=== PATIENT | male | born 1985 ===

== ENCOUNTER 2016-11-21 16:46 | Emergency (ER) | payer SELFPAY ==
[2016-11-21 16:54] VITALS: BP 117/77; PULSE 66; RESP 18; TEMP 98; O2SAT 98
--- NOTE | 2016-11-21 17:40 | ED PDOC ---
Lower Extremity Pain/Injury Time Seen by Provider: 11/21/16 17:13 Chief Complaint (Nursing): Lower Extremity Problem/Injury Chief Complaint (Provider): Lower Extremity Problem/Injury History Per: Patient History/Exam Limitations: no limitations Onset/Duration Of Symptoms: Hrs (prior to arrival ) Additional Complaint(s): Siva Owen, 31 year old male presents to the ED complaining of right toe pain after injuring it earlier today prior to arrival. The patient states he attempted to remove his toenail due to the pain and is unable to walk. He reports minor drainage. He denies fever or chills. PMD: None provided Past Medical History Reviewed: Historical Data, Nursing Documentation, Vital Signs Vital Signs: Last Vital Signs Temp 98 F 11/21/16 16:52 Pulse 66 11/21/16 16:52 Resp 18 11/21/16 16:52 BP 117/77 11/21/16 16:52 Pulse Ox 98 11/21/16 16:52 - Medical History PMH: No Chronic Diseases - Family History Family History: States: Unknown Family Hx - Social History Current smoker - smoking cessation education provided: Yes Alcohol: Other Drugs: Denies - Immunization History Hx Tetanus Toxoid Vaccination: No Hx Influenza Vaccination: No Hx Pneumococcal Vaccination: No - Home Medications Home Medications: Ambulatory Orders Medication Instructions Recorded Cephalexin [cephalexin] 500 mg PO BID #14 cap 11/21/16 - Allergies Allergies/Adverse Reactions: Allergies Allergy/AdvReac Type Severity Reaction Status Date / Time No Known Allergies Allergy Unverified 11/21/16 16:51 Review of Systems ROS Statement: Except As Marked, All Systems Reviewed And Found Negative Constitutional: Negative for: Fever, Chills Musculoskeletal: Positive for: Foot Pain (right toe pain ) Physical Exam - Reviewed Nursing Documentation Reviewed: Yes Vital Signs Reviewed: Yes - Physical Exam Appears: Positive for: Well, Non-toxic, No Acute Distress Head Exam: Positive for: ATRAUMATIC, NORMAL INSPECTION, NORMOCEPHALIC Extremity: Positive for: Normal ROM, Swelling (and pain to right toe ), Other ( drainage to radial side of right toe with nail injury) DTR - Bicep (R): 2+ DTR - Bicep (L): 2+ DTR - Tricep (R): 2+ DTR - Tricep (L): 2+ DTR - Knee (R): 2+ DTR - Knee (L): 2+ DTR - Ankle (R): 2+ DTR - Ankle (L): 2+ Neurologic/Psych: Positive for: Alert, Oriented - ECG O2 Sat by Pulse Oximetry: 98 (RA) Pulse Ox Interpretation: Normal Medical Decision Making Medical Decision Making: Impression: Right toe pain Plan: * Foot Right 3 Views Routine [RAD] Stat Reevaluation * Right Foot X-Ray - normal * Podiatry Consulted. Scribe Attestation: Documented by Georgina Celis, acting as a scribe for Myranda Erazo PA-C. Provider Scribe Attestation: All medical record entries made by the Scribe were at my direction and personally dictated by me. I have reviewed the chart and agree that the record accurately reflects my personal performance of the history, physical exam, medical decision making, and the department course for this patient. I have also personally directed, reviewed, and agree with the discharge instructions and disposition. Disposition - Clinical Impression Clinical Impression: Injury of nail - Patient ED Disposition Is Patient to be Admitted: No Counseled Patient/Family Regarding: Studies Performed, Diagnosis, Need For Followup - Disposition Referrals: Podiatry Clinic [Outside] Disposition: Routine/Home Disposition Time: 18:32 Condition: STABLE Prescriptions: Cephalexin [cephalexin] 500 mg PO BID #14 cap Instructions: Ingrown Nail (ED) Forms: [facility] ED School/Work Excuse
--- NOTE | 2016-11-21 17:47 | RAD ---
PROCEDURE: Right Foot Radiographs. HISTORY: injury to 1st MTP COMPARISON: None available. FINDINGS: BONES: No acute displaced fracture. JOINTS: No dislocation. SOFT TISSUES: Soft tissue swelling. No evidence of radiopaque foreign body. OTHER FINDINGS: None. IMPRESSION: Soft tissue swelling. No acute displaced fracture or dislocation identified. If symptoms persist, or if there is continued clinical concern, x-ray follow-up in 7-10 days should be considered.
[2016-11-21] MEDS ORDERED: Lidocaine 1% Inj (20ml) IJ ONE (17:58)
--- NOTE | 2016-11-21 18:34 | CP.PCM.CON ---
History of Present Illness - History of Present Illness History of Present Illness: 31 yo male patient seen in ED today with right hallux pain. Pt states that he tried to remove his own toenail yesterday with toenail clippers however he noticed today that the pain worsened and was unable to ambulate without pain. Denies any blood or discharge from the toenail. Denies f/n/v/c/sob/cp at this time. Review of Systems - Review of Systems Review of Systems: as per HPI Past Patient History - Past Social History Alcohol: Other Drugs: Denies - PSYCHIATRIC Hx Substance Use: No - SURGICAL HISTORY Hx Surgeries: No - ANESTHESIA Hx Anesthesia: No Meds Home Medications: Home Medication List Medication Instructions Recorded Confirmed Type Cephalexin [cephalexin] 500 mg PO BID #14 cap 11/21/16 Rx Allergies/Adverse Reactions: Allergies Allergy/AdvReac Type Severity Reaction Status Date / Time No Known Allergies Allergy Unverified 11/21/16 16:51 Physical Exam - Constitutional Appears: Non-toxic, No Acute Distress - Extremities Exam Extremities exam: Negative for: calf tenderness Additional comments: Right foot focused VASC- DP/PT pulses palpable, skin temp runs warm to cool, cft< 3sec to all digits, moderate pedal edema noted to hallux DERM- no fluctuance, no calor, no drainage, no signs infection NEURO- pedal sensation is grossly intact ORTHO- tenderness noted lateral border of right hallux toenail, - Neurological Exam Neurological exam: Alert, CN II-XII Intact, Oriented x3 - Psychiatric Exam Psychiatric exam: Normal Affect, Normal Mood Results - Vital Signs Recent Vital Signs: Last Vital Signs Temp 98 F 11/21/16 16:52 Pulse 66 11/21/16 16:52 Resp 18 11/21/16 16:52 BP 117/77 11/21/16 16:52 Pulse Ox 98 11/21/16 18:32 Assessment & Plan - Assessment and Plan (Free Text) Assessment: 31 yo male patient with ingrown toenail right hallux Plan: Pt S&E at bedside Plan discussed with attending Dr. Wynn Chart labs reviewed foot x-ray reviewed: no evidence fx or dislocations, soft tissue edema is noted 7cc 1% lidocaine plain injected into right hallux in ring block fashion Once adequate anesthesia achieved, sterile nail nipper used to perform slant back of right hallux lateral nail border and offended nail removed. Flushed with saline. Bacitracin and DSD applied, keep c/d/i x 24 hours then transition to bacitracin and bandaid. Soak daily Wear sx shoe recommend course po abx f/u [facility] podiatry clinic
== END 2016-11-21 18:39 | disposition home or self-care (01) ==
LOC: H.ER 16:46
DX: L60.0 Ingrowing nail (principal)

== ENCOUNTER 2016-12-28 00:13 | Emergency (ER) | payer SELFPAY ==
[2016-12-28 00:29] VITALS: BP 123/75; PULSE 97; RESP 16; TEMP 100.5; O2SAT 99
[2016-12-28] MEDS ORDERED: methylPREDNISolone 60 MG in Sodium Chloride 0.9% 50 ML IVPB STA (00:45)
[2016-12-28] MEDS ORDERED: Sodium Chloride 0.9% 1,000 ML IV SCH (00:45)
[2016-12-28 01:32] LABS: BASO # 0.1 K/uL (0.0-0.2); BASO % 0.6 % (0.0-2.0); EOS # 0.1 K/uL (0.0-0.7); EOS % 0.4 % (0.0-4.0); HEMATOCRIT 45.2 % (35.0-51.0); LYMPH # 1.4 K/uL (1.0-4.3); LYMPH % 7.4 % (20.0-40.0); MEAN CELL VOLUME 89.3 fl (80.0-94.0); MEAN CORPUSCULAR HEMOGLOBIN 29.5 pg (27.0-31.0); MEAN PLATELET VOLUME 8.6 fl (7.2-11.7); MONO # 1.5 K/uL (0.0-0.8); NEUT # 15.3 K/uL (1.8-7.0); NEUT % 83.6 % (50.0-75.0); PLATELET COUNT 191 K/uL (130-400); RED CELL DISTRIBUTION WIDTH 13.6 % (11.5-14.5); WHITE BLOOD COUNT 18.3 K/uL (4.8-10.8)
--- NOTE | 2016-12-28 01:33 | ED PDOC ---
HPI: Fever Fever Onset Was: 12/25/16 The Fever Was Measured: Tactile What Antipyretic Given Prior To Arrival: Acetaminophen Recent Sick Contacts: No Have you had recent travel within the past 21 days to any of the following countries: [place], [place], [place] or [place]?: No Does Patient Have Hx Of Febrile Seizures: No Did The Patient Have A Seizure Today: No Symptoms Associated With Fever: Difficulty Feeding/Eating (Sore throat and body aches) Past Medical History Vital Signs: Last Vital Signs Temp 100.5 F H 12/28/16 00:25 Pulse 97 H 12/28/16 00:25 Resp 16 12/28/16 00:25 BP 123/75 12/28/16 00:25 Pulse Ox 99 12/28/16 03:59 - Medical History PMH: No Chronic Diseases - Surgical History Surgical History: No Surg Hx - Family History Family History: States: Unknown Family Hx - Living Arrangements Living Arrangements: Alone - Social History Current smoker - smoking cessation education provided: No Alcohol: Social Drugs: Denies - Immunization History Hx Tetanus Toxoid Vaccination: No Hx Influenza Vaccination: No Hx Pneumococcal Vaccination: No - Home Medications Home Medications: Ambulatory Orders Medication Instructions Recorded Cephalexin [cephalexin] 500 mg PO BID #14 cap 11/21/16 Amoxicillin/Clavulanate [Augmentin 1 tab PO BID #20 tab 12/28/16 875 MG-125 MG] - Allergies Allergies/Adverse Reactions: Allergies Allergy/AdvReac Type Severity Reaction Status Date / Time No Known Allergies Allergy Unverified 11/21/16 16:51 Review of Systems Constitutional: Positive for: Fever, Chills, Malaise Eyes: Negative for: Pain, Vision Change ENT: Positive for: Throat Pain. Negative for: Ear Pain, Ear Discharge, Mouth Pain, Throat Swelling Cardiovascular: Negative for: Chest Pain, Palpitations Respiratory: Negative for: Cough, Shortness of Breath Gastrointestinal: Negative for: Nausea, Vomiting, Abdominal Pain Genitourinary Male: Negative for: Dysuria, Frequency Musculoskeletal: Negative for: Neck Pain, Shoulder Pain Skin: Negative for: Rash, Lesions Neurological: Negative for: Weakness, Confusion Physical Exam - Reviewed Vital Signs Reviewed: Yes - Physical Exam Appears: Positive for: Uncomfortable Head Exam: Positive for: ATRAUMATIC, NORMOCEPHALIC Skin: Positive for: Normal Color, Warm ENT: Positive for: Pharyngeal Erythema, Tonsillar Exudate, Tonsillar Swelling Neck: Positive for: Painless ROM, Supple Cardiovascular/Chest: Positive for: Regular Rate, Rhythm. Negative for: Murmur Respiratory: Positive for: Normal Breath Sounds. Negative for: Respiratory Distress Gastrointestinal/Abdominal: Positive for: Soft. Negative for: Tenderness Back: Negative for: L CVA Tenderness, R CVA Tenderness Lymphatic: Positive for: Other (RT submandibular LAD) - Laboratory Results Result Diagrams: 12/28/16 01:14 12/28/16 01:14 - ECG O2 Sat by Pulse Oximetry: 99 - CT Scan/US CT Neck Other Rad Studies (CT/US): Read By Radiologist - Progress ED Course And Treament: CBC BMP Rapid Strep Monospot Toradol 30mg Methylprednisolone 60mg Normal Saline bolus 1000ml CT Scan with I.V. contrast Re-evaluation Time: 03:58 Condition: Improved Medical Decision Making Medical Decision Makin y.o. male with no significant PMHx presented with sore throat, fever, chills , and body aches found to have an elevated WBC and physical exam findings consistent with acute tonsillitis with CT Neck with I.V. contrast unremarkable for abscess feeling better and tolerating PO fluids and solids to be discharged with Augmentin 875/125 mg BID for 10 days to follow up with [facility] with Dr. Sepulveda. [facility]- CT Neck IMPRESSION: - Swelling of the right palatine tonsil, suspicious for tonsillitis. No peritonsillar abscess identified. - Mild lymphadenopathy in the right neck. This may be reactive in etiology, related to the suspected tonsillitis. Followup is recommended. - See above for remaining findings Disposition - Clinical Impression Clinical Impression: Tonsillitis - Patient ED Disposition Is Patient to be Admitted: No Discussed With : Gustavo Carcamo - Disposition Referrals: [facility] [Outside] Emory Sepulveda DO [Emergency Midlevel Provider] - Disposition: Routine/Home Disposition Time: 04:04 Condition: STABLE Prescriptions: Amoxicillin/Clavulanate [Augmentin 875 MG-125 MG] 1 tab PO BID #20 tab Instructions: Tonsillitis (ED) Forms: [employer] (French), [employer] (Kiswahili) Print Language: LIBYAN
[2016-12-28 01:42] LABS: BLOOD UREA NITROGEN 13 mg/dl (9-20); CALCIUM 9.2 mg/dL (8.4-10.2); CARBON DIOXIDE 25 mmol/L (22-30); CHLORIDE 104 mmol/L (98-107); GFR AFRICAN-AMERICAN > 60; GLUCOSE,RANDOM 111 mg/dL (75-110); POTASSIUM 3.7 MMOL/L (3.6-5.0); SODIUM 139 mmol/l (132-148)
[2016-12-28] MEDS ORDERED: Sodium Chloride 0.9% 50 ML IV ONE (02:19)
[2016-12-28] MEDS ORDERED: Iohexol 300 100 ML IJ ONE (02:19)
--- NOTE | 2016-12-28 03:44 | CT ---
EXAM: CT Neck With Intravenous Contrast EXAM DATE/TIME: 12/28/2016 2:11 AM CLINICAL HISTORY: 31 years old, male; Signs and symptoms; Dysphagia / difficulty swallowing; Additional info: Dysphagia, fever, abcess. Rt side neck TECHNIQUE: Axial computed tomography images of the neck with intravenous contrast. All CT scans at this facility use one or more dose reduction techniques, viz.: automated exposure control; ma/kV adjustment per patient size (including targeted exams where dose is matched to indication; i.e. head); or iterative reconstruction technique. Coronal and sagittal reformatted images were created and reviewed. CONTRAST: 80 mL of [id number] administered intravenously. COMPARISON: No relevant prior studies available. FINDINGS: NASOPHARYNX: No acute abnormality of the nasopharyngeal/adenoidal tonsils identified. OROPHARYNX: Swelling of the right palatine tonsil, suspicious for tonsillitis. There is no definite fluid density, discrete collection seen to suggest a peritonsillar abscess. HYPOPHARYNX: No acute abnormality of the piriform sinuses identified. LARYNX: No acute abnormality of the epiglottis identified. No acute abnormality of the vocal cords identified. TRACHEA: Visualized portions of the trachea appear patent. RETROPHARYNGEAL SPACE: No evidence of prevertebral/retropharyngeal fluid or fluid collection. SUBMANDIBULAR/PAROTID GLANDS: No acute abnormality of the submandibular or parotid glands identified. THYROID: No acute abnormality of the thyroid gland identified. BONES/JOINTS: No acute fractures or other acute bony abnormality noted. SOFT TISSUES: No findings to suggest significant cellulitis of the soft tissues. VASCULATURE: No acute abnormality of the major neck vessels seen. LYMPH NODES: Mild lymphadenopathy in the right neck. The largest lymph node measures 2.7 x 1.7 cm, and is located in the jugulodigastric chain, at the level of the submandibular gland. Multiple small lymph nodes are seen elsewhere in the neck, but there is no evidence of diffuse pathologic lymphadenopathy. SINUSES: Mild opacification of the bilateral ethmoid sinuses. ESOPHAGUS: No acute abnormality of the upper esophagus identified. LUNG APICES: Lung apices appear clear. IMPRESSION: - Swelling of the right palatine tonsil, suspicious for tonsillitis. No peritonsillar abscess identified. - Mild lymphadenopathy in the right neck. This may be reactive in etiology, related to the suspected tonsillitis. Followup is recommended. - See above for remaining findings.
[2016-12-28] MEDS ORDERED: Ampicillin/Sulbactam 3 GM in Sodium Chloride 0.9% 100 ML IVPB STA (03:50)
[2016-12-28] MEDS ORDERED: Amoxicillin-Clav 875-125 mg Tab PO STA (03:55)
[2016-12-28] MEDS ORDERED: Amoxicillin-Clav 875-125 mg Tab PO ONE (03:57)
[2016-12-28 04:04] LABS: BASOPHIL 1 % (0-2); NEUTROPHIL 84 % (42-75); TOTAL CELLS COUNTED 100
== END 2016-12-28 04:12 | disposition home or self-care (01) ==
LOC: H.ER 00:13
DX: J03.90 Acute tonsillitis, unspecified (principal); R13.10 Dysphagia, unspecified; R50.9 Fever, unspecified
CPT/HCPCS: 70491; 80048; 85025; 86308; 87070; 87430; 96374; 99284; J1885; J2930; J7040; Q9967

== ENCOUNTER 2018-06-28 00:54 | Emergency (ER) | payer OTHER ==
[2018-06-28 01:05] VITALS: BMI 24.2
[2018-06-28 01:08] VITALS: BP 141/88; RESP 18; TEMP 98; O2SAT 100
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
[2018-06-28 03:37] VITALS: PULSE 94
--- NOTE | 2018-06-28 09:02 | RAD ---
Date of service: 06/28/2018 PROCEDURE: Left Knee Radiographs. HISTORY: Pain. COMPARISON: None. FINDINGS: BONES: Normal. No fracture. There appears to be patella stephanie and/or superior dislocation however that is likely due to flexion in the frontal projection JOINTS: Normal. No osteoarthritis. JOINT EFFUSION: None. OTHER FINDINGS: None. IMPRESSION: No acute displaced fracture nor dislocation
== END 2018-06-28 03:36 | disposition home or self-care (01) ==
LOC: H.ER 00:54
DX: S86.812A Strain of other muscle(s) and tendon(s) at lower leg level, left leg, initial encounter (principal); Y04.0XXA Assault by unarmed brawl or fight, initial encounter; Y92.89 Other specified places as the place of occurrence of the external cause
CPT/HCPCS: 29530; 73562; 96372; 99284; J1885

== ENCOUNTER 2018-07-21 06:16 | Day surgery (SDC) | payer OTHER ==
[2018-07-19 10:05] VITALS: BMI 24.7
[2018-07-21] MEDS ORDERED: Lactated Ringer's 1,000 ML IV ONE ×2 (07:00→14:50)
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
[2018-07-21] MEDS ORDERED: Bacitracin Ointment 30 GM TUBE ONE (14:56)
[2018-07-21] MEDS ORDERED: Propofol 10 mg/ml Inj (20 ML) ONE (15:11)
[2018-07-21] MEDS ORDERED: Succinylcholine 200 mg/10 ml Inj IV ONE (15:11)
[2018-07-21] MEDS ORDERED: Midazolam 2 MG/2 ML VIAL ONE (15:24)
[2018-07-21] MEDS ORDERED: Rocuronium 10 mg/ml (5 ml) ONE (15:33)
[2018-07-21] MEDS ORDERED: Esmolol 100 mg/10ml Inj IV ONE (15:47)
[2018-07-21] MEDS ORDERED: Neostigmine 1:1000 (1 mg/ml) Inj ONE (15:52)
[2018-07-21] MEDS ORDERED: ePHEDrine 50 mg/ml Inj ONE (15:59)
[2018-07-21] MEDS ORDERED: Ropivacaine 0.5% 30ML IV ONE (16:07)
[2018-07-21] MEDS ORDERED: Dexamethasone 4 mg/1 ml ONE (16:38)
[2018-07-21] MEDS ORDERED: Oxycodone/Acetaminophen 5/325 mg Tab PO PRN (17:18)
[2018-07-21] MEDS ORDERED: HYDROmorphone 0.5 mg/0.5 ml ISec ONE (17:24)
[2018-07-21] MEDS: HYDROmorphone 0.5 mg/0.5 ml ISec IVP PRN ×2 (17:25→17:50)
--- NOTE | 2018-07-21 17:28 | PCM.SURG1 ---
Surgeon's Initial Post Op Note - Surgeon's Notes Surgeon: Moises Monaco MD Discount Clerk: Gio Bah PA-C, Juliette GREWAL Type of Anesthesia: General Endo Anesthesia Administered By: Lashell JUAREZ Pre-Operative Diagnosis: Left knee patella tendon rupture Operative Findings: see complete operative report Post-Operative Diagnosis: Left patella tendon complete rupture Operation Performed: 1. Left patella tendon repair 2. Positioning of fluoroscopy and interpretation of video imaging. Specimen/Specimens Removed: none Estimated Blood Loss: EBL {In ML}: 5 Blood Products Given: N/A Drains Used: No Drains Post-Op Condition: Good Date of Surgery/Procedure: 07/21/18 Time of Surgery/Procedure: 15:20 (incision: 16:15)
[2018-07-21] MEDS ORDERED: Bupivacaine HCl 0.25% PF (30 ml) Inj ONE (17:29)
--- NOTE | 2018-07-21 17:52 | PCM.ANESB3 ---
Femoral Nerve Block - Femoral Nerve Block Date of Procedure: 07/21/18 Anesthesiologist: TR Pre-Procedure Diagnosis: L patellar injury Post-Procedure Diagnosis: same Procedure Performed: Femoral Nerve Block Left - Procedure Femoral Nerve Block: The procedure was explained to the patient that it is for the post-operative pain management. Consent was obtained after a thorough discussion with the patient regarding the benefits and possible complications of local anesthetic block of the femoral nerve at the inguinal crease area. The patient was brought to the operating room and standard monitors were applied. Time-out was held with the circulating nurse to confirm the correct surgery and the appropriate block. After applying oxygen by nasal cannula and administering IV Sedation, patient was placed in supine position with fully extended lower extremities and the _left groin exposed. The femoral artery was then carefully palpated. The ultrasound transducer was then applied to this area in the transverse plane and the femoral nerve was visualized lateral to the femoral artery and underneath the fascia iliaca. After thorough identification, the inguinal crease area was prepped with Betadine solution three times and 1 % Lidocaine was injected subcutaneously for topical anesthesia. At this point, a #22 gauge Stimuplex 2-inch needle was inserted immediately lateral to the femoral artery pulse at the inguinal crease and advanced perpendicularly. The needle was inserted to the ultrasound transducer in-plane towards the femoral nerve in a [id number] direction. Needle advancement was performed carefully under direct ultrasound visualization. Nerve stimulator was used and twitch of the left quadriceps muscle was obtained at current of _2.0____MA. After negative aspiration, __1___cc of 0.5 % ____ropivicaine was injected and this was followed with __19____ cc of ___0.5____ % __ropivicaine . Under ultrasound guidance the local anesthetics were observed spreading below fascia iliaca and around the femoral nerve. The needle was removed intact and sterile dressing was applied. The patient had stable vital signs, was conscious and in no apparent distress. The patient tolerated the femoral nerve block well with stable vital signs and was prepared for subsequent surgery.
[2018-07-21 21:01] VITALS: RESP 20
[2018-07-21] MEDS ORDERED: Morphine 4 MG/ML VIAL IVP PRN (22:15)
[2018-07-21 22:29] VITALS: TEMP 98.7; O2SAT 97
[2018-07-21 23:31] VITALS: BP 120/76; PULSE 95
--- NOTE | 2018-07-23 22:23 | OP ---
PROCEDURE DATE: 07/21/2018 PREOPERATIVE DIAGNOSIS: Patellar ligament rupture, left knee. POSTOPERATIVE DIAGNOSIS: Patellar ligament rupture, left knee and rupture of medial retinaculum. OPERATIVE FINDINGS: Rupture of patellar ligament with approximately 1.5 cm defect with tears of the medial and lateral patellar retinaculum. OPERATIVE PROCEDURES: 1. Primary repair of patellar ligament using two SwiveLock Arthrex anchors. 2. Primary repair of the medial and lateral retinaculum. 3. Application of Scooter Molina compression dressing and knee immobilizer. SURGEON Moises Monaco MD CAFE ATTENDANT: Gio Bah PA-C [facility] DIRECTOR: KIKE Lamb ANESTHESIA: General endotracheal anesthesia. ANESTHESIOLOGIST: Gerardo Lobo MD COMPLICATIONS: None. DRAINS: None. OPERATIVE INDICATION: Siva Lawrence is a person who was seen in the emergency room at [facility]. The patient was seen, evaluated, and discharged with the brace and a knee immobilizer, sent to the clinic. MRI examination was accomplished, which revealed the aforementioned rupture of the patellar ligament. Pros, cons, risks, and benefits of the surgical approach were discussed at length with the patient through the culturally competent steam crane operator, his friend, and with the nurse in attendance. The possibility of mechanical failure, infection, thromboembolic disease, stiffness is discussed. Because of delay between the trauma and the repair, the possibility of a terminal stiffness is discussed. The possibility of mechanical failure, infection, thromboembolic disease, secondary or tertiary surgery was discussed. OPERATIVE PROCEDURE: After the satisfactory induction of the anesthetic, after having identified the side, site and procedure and a critical pause/time-out after the satisfactory induction of the anesthetic and after having obtained informed consent, the patient identified as Siva Lawrence in the supine position with all bony prominences well padded. The left lower extremity was prepped and free draped in usual fashion for lower extremity surgery. The tourniquet, which have been applied was inflated to 350 mmHg. The lower extremity was exsanguinated using a 6-inch Esmarch bandage and tourniquet, which had been applied, was inflated to 350 mmHg. A 6-inch straight midline approach was made to the knee. The skin incision was carried down through the skin and subcutaneous tissue. Hemostasis was controlled with electrocautery. The dissection was carried down to the prepatellar bursa. The prepatellar bursa was carefully divided. The patellar ligament rupture was identified. Tethering of the soft tissue was accomplished using a #10 blade exposing the medial and lateral patellar retinaculum. There was found to be evidence of medial and lateral patellar retinacular rupture. The medial and lateral patellar retinacular rupture was identified. The patellar ligament rupture was identified as well. At this point in time, the extensor expansion from the superficial to the patella was carefully elevated and the inferior pole of the patella was roughened using a rongeur. This having been accomplished, using a modified [place] suture of the FiberTape, this was started distally and brought out proximally and it was loaded into a suture anchor. A guidewire was placed on the patella taking great care to avoid injury to the articular surface. Drilling was accomplished to approximately 25 mm. The SwiveLock anchor was loaded with the knee in extension, perhaps 5 degrees short of terminal extension, the SwiveLock anchor was introduced, tightened, and the repair was found to be successful. A second FiberTape had been introduced into the patellar tendon as well in a different sagittal position and again using a modified [place] suture and with the suture emanating more laterally, the same approach was accomplished. Primary repair with SwiveLock anchor was accomplished. Guide pin was placed in the patella, followed by reaming to the appropriate size 25 30 mm. The SwiveLock anchor was loaded, it was impacted, and the SwiveLock anchor was introduced. Now with the knee in full extension, tightening was accomplished and the repair was found to be excellent. The additional FiberWire suture was employed and the repair was strengthened to the extensor expansion with free needles. The medial and lateral patellar retinaculum were repaired using interrupted FiberWire. The wound was thoroughly irrigated. Closures in layers with interrupted Vicryl and joseph. Scooter Molina compression dressing and knee immobilizers were applied. The repair was found to be excellent. Moises Monaco MD
--- NOTE | 2018-07-25 09:38 | RAD ---
Date of service: 07/21/2018 PROCEDURE: Fluoroscopy up to 1 hr. HISTORY: COMPARISON: None TECHNIQUE: Standard protocol for this study/examination. FINDINGS: Total fluoroscopic time (continuous mode) utilized during the procedure 4.1 seconds. Total exam DLP: 0.14 (mGy). IMPRESSION: Less than 1 hr fluoroscopic assistance provided during performance of the procedure.
== END 2018-07-21 23:33 | disposition home or self-care (01) ==
LOC: H.OPSURG 06:16 → H.MEDSURG1 21:06 → H.OPSURG 23:33
PROVIDERS: ATTEND Orthopaedic Surgery
DX: S86.812A Strain of other muscle(s) and tendon(s) at lower leg level, left leg, initial encounter (principal); X58.XXXA Exposure to other specified factors, initial encounter
CPT/HCPCS: 27664; 76000; 97161; G8978; G8979; G8980; J0330; J0690; J1100; J1170; J1885; J2001; J2250; J2405; J2704; J2710; J3010; J7120